=== PATIENT | female | born 1965 | race Caucasian/White ===

== ENCOUNTER 2018-08-10 14:46 | Outpatient (CLI) | payer BC ==
--- NOTE | 2018-08-10 15:55 | MMO ---
Bilateral MAMMO Bilat Screen [facility]. CLINICAL HISTORY: Patient is 52 years old and is seen for screening. The patient has no family history of breast cancer. The patient has no personal history of cancer. VIEWS: The views performed were: bilateral craniocaudal with tomosynthesis and bilateral mediolateral oblique with tomosynthesis. FILMS COMPARED: The present examination has been compared to a prior imaging study performed at [facility] on 03/04/2015. MAMMOGRAM FINDINGS: There are scattered fibroglandular densities. There are no suspicious masses, suspicious calcifications, or new areas of architectural distortion. IMPRESSION: THERE IS NO MAMMOGRAPHIC EVIDENCE OF MALIGNANCY. A ROUTINE FOLLOW-UP MAMMOGRAM IN 1 YEAR IS RECOMMENDED. THE RESULTS OF THIS EXAM WERE SENT TO THE PATIENT. ACR BI-RADS Category 1 - Negative MAMMOGRAPHY NOTE: 1. A negative mammogram report should not delay a biopsy if a dominant of clinically suspicious mass is present. 2. Approximately 10% to 15% of breast cancers are not detected by mammography. 3. Adenosis and dense breasts may obscure an underlying neoplasm.
--- NOTE | 2018-08-10 16:23 | BD ---
Exam: DEXA Bone Density 08/10/18 HISTORY: Osteoporosis screening. COMPARISON: Bone mineral density study from 2015. FINDINGS: Lumbar Spine: BMD (g/cm2) T-Score: Z-Score: L1 0.923 0.6 0.3 L2 1.046 0.2 1.2 L3 1.230 1.1 2.1 L4 1.137 0.7 1.8 L1-L4 1.075 0.3 1.3 WHO classification is normal. Change from the comparison examination is -0.4%. Left Femoral Neck: 0.710 -1.3 -0.2 Total Left Femur: 0.804 -1.1 -0.5 WHO classification is osteopenia. There is a statistically significant increase in bone mineral densi ty from the comparison examination of 12.9%. Ten year fracture risk: Major osteoporotic fracture is 7%, hip fracture is 0.9%. Impression: Osteopenia left femoral neck and total left hip with fracture risk as above. POS: TPC
== END 2018-08-10 14:47 | disposition home or self-care (01) ==
LOC: BICMAMMO 14:46
PROVIDERS: ATTEND Family Medicine
DX: Z12.31 Encounter for screening mammogram for malignant neoplasm of breast (principal); Z13.820 Encounter for screening for osteoporosis; M85.89 Other specified disorders of bone density and structure, multiple sites
CPT/HCPCS: 77063; 77067; 77080

== ENCOUNTER 2019-03-21 14:51 | Outpatient (CLI) | payer BC ==
[~2019-03-21 14:51] MED LIST: Magnevist 469MG/ML 20 ML VIAL ONE
--- NOTE | 2019-03-21 15:54 | RAD ---
FOUR VIEWS LUMBAR SPINE: HISTORY: Lumbar radiculopathy. COMPARISON: None. CORRELATION: Lumbar spine CT 03/04/2015. FINDINGS: Redemonstration of dextrorotatory scoliosis of the lumbar spine with the apex at the L2-L3 level. Lum bar spine vertebral body height is maintained. No fracture. In the neutral weightbearing position, there is straightening of lumbar lordosis without evidence of significant spondylolisthesis. Severe degenerative disc disease at L3-L4 with loss of disc space height and osteophyte formation. Upon extension and flexion, no abnormal motion. Visualized sacrum and bony pelvis are unremarkable. IMPRESSION: Dextrorotoscoliosis of lumbar spine. Transcribed Date/Time: 03/21/2019 4:02 PM
--- NOTE | 2019-03-21 20:40 | MRI ---
MRI LUMBAR SPINE WITH AND WITHOUT CONTRAST: DATE: 03/21/2019 HISTORY: 53-year-old female with chronic low back pain and bilateral lumbar radiculopathy. TECHNIQUE: Multiple sequences obtained in axial and sagittal planes, pre and post IV injection of gadolinium-bas ed contrast agent. FINDINGS: Transitional level at lumbosacral junction. Review of thoracic spine CT and lumbar spine CT of 015 demonstrates that there are 12 paired ribs. First nonrib-bearing lumbar-type vertebra will be designated as L1. The lowest level with then the L6. Level of greatest lordotic angulation with the L 5-6. Enlarged, dysplastic left L6 transverse process is fused with the left S1 sacral ala. There is no such fusion or articulation on the right. There is dextroscoliosis, with apex of curvature at L2. Chronic grade 1 right lateral subluxation of L3 on L4. Chronic right lateral subluxation of L4 on L5. Vertebral body heights are maintained. There is high-grade degenerative disc disease with high-grade disc space narrowing, and endplate irregularity, at L2-3, L3-4, L4-5, and L5-6. There are asymmetrically distributed Modic type I endplate marrow changes at L4-5 and L5-6. No major spondylolisthesis. T12-L1:Only imaged on sagittal sequences. No high-grade central stenosis or high-grade neural foramin al stenosis. L1-2:Mild disc bulge. Conus medullaris terminates at this level. Mild bilateral facet DJD. Mild to mo derate degenerative disc disease. Broad-based disc-osteophytic bar complex indents thecal sac. No high-grade central stenosis. Mild to moderate bilateral neural foraminal stenosis. L2-3:Mild disc bulge. Mild to moderate central spinal canal stenosis. Mild bilateral facet DJD. No ri ght neural foraminal stenosis. Mild left neural foraminal stenosis. L3-4:Mild diffuse disc bulge. Moderate left neural foraminal stenosis. No right neural foraminal sten osis. Moderate central stenosis. Lateral recess stenosis bilaterally. L4-5:Severe bilateral facet DJD. Mild left neural foraminal stenosis. Moderate right neural foraminal stenosis. Prominent diffuse disc bulge. Severe central spinal canal stenosis. Signs of previous midline laminectomy with bony overgrowth across a cross midline. No signs of unexpected abnormal enha ncement. L5-6:Severe right neural foraminal stenosis due to the concavity of the counter curvature, plus large right lateral and far lateral broad-based disc-osteophyte complex. Moderate-severe central spinal canal stenosis. High-grade right lateral recess stenosis, in part due to enhancing scar tissue surrou nding the right L6 nerve root. Moderate left neural foraminal stenosis. Mild bilateral facet DJD. L6-S1: No acquired central stenosis. Mild right neural foraminal stenosis. No left neural foraminal s tenosis. No significant DJD of hypoplastic bilateral facets. IMPRESSION: 1) lumbosacral transitional vertebra type 3A at L6-S1. 2) severe lumbar spondylosis, with multilevel high-grade degenerative disc disease, and bilateral L4- 5 severe facet osteoarthrosis.. 3) prominent dextroscoliosis of upper lumbar spine. 4) severe central spinal canal stenosis at L4-5. 5) severe right neural foraminal stenosis at L5-6. 6) at L5-6 right lateral recess stenosis, including postsurgical scar tissue surrounding the right L6 nerve root.
== END 2019-03-21 14:52 | disposition home or self-care (01) ==
LOC: BICMRI 14:51
PROVIDERS: ATTEND Anesthesiology Pain Medicine
DX: M51.16 Intervertebral disc disorders with radiculopathy, lumbar region (principal); M47.26 Other spondylosis with radiculopathy, lumbar region; M48.061 Spinal stenosis, lumbar region without neurogenic claudication; M41.9 Scoliosis, unspecified; L90.5 Scar conditions and fibrosis of skin; Z98.890 Other specified postprocedural states
CPT/HCPCS: 72120; 72158; A9579

== ENCOUNTER 2021-11-03 08:21 | Outpatient (CLI) | payer OTHER | END 2021-11-03 08:22 | disposition home or self-care (01) | LOC: BICMRI 08:21 | PROVIDERS: ATTEND Nurse Practitioner Family | DX: M48.062 Spinal stenosis, lumbar region with neurogenic claudication (principal); M41.9 Scoliosis, unspecified; M47.816 Spondylosis without myelopathy or radiculopathy, lumbar region | CPT/HCPCS: 72148 ==

== ENCOUNTER 2022-01-20 15:17 | Outpatient (CLI) | payer OTHER | END 2022-01-20 15:18 | disposition home or self-care (01) | LOC: BICMAMMO 15:17 | PROVIDERS: ATTEND Orthopaedic Surgery | DX: Z13.820 Encounter for screening for osteoporosis (principal); M54.16 Radiculopathy, lumbar region; M54.50 Low back pain, unspecified; M85.851 Other specified disorders of bone density and structure, right thigh; M85.852 Other specified disorders of bone density and structure, left thigh | CPT/HCPCS: 77080 ==

== ENCOUNTER 2022-01-20 15:39 | Outpatient (CLI) | payer OTHER | END 2022-01-20 15:40 | disposition home or self-care (01) | LOC: RAD 15:39 | PROVIDERS: ATTEND Orthopaedic Surgery | DX: M47.26 Other spondylosis with radiculopathy, lumbar region (principal); M41.9 Scoliosis, unspecified | CPT/HCPCS: 72100 ==

== ENCOUNTER 2023-05-30 13:47 | Outpatient (CLI) | payer OTHER | END 2023-05-30 13:48 | disposition home or self-care (01) | LOC: BICMAMMO 13:47 | PROVIDERS: ATTEND Family Medicine | DX: Z12.31 Encounter for screening mammogram for malignant neoplasm of breast (principal); M85.89 Other specified disorders of bone density and structure, multiple sites | CPT/HCPCS: 77063; 77067; 77080 ==